=== PATIENT | female | born 2000 | race Two or more races ===

== ENCOUNTER 2024-12-24 15:56 | Emergency (ER) | payer OTHER ==
[~2024-12-24] VITALS: Ht 157.5 cm; Wt 45.4 kg
[2024-12-24 17:02] VITALS: BP 106/64; TEMP 98.1
[2024-12-24] MEDS ORDERED: IBUPROFEN 600 MG TABLET ONE (17:27)
[2024-12-24] MEDS ORDERED: ACETAMINOPHEN ES 500 MG TABLET ONE (17:27)
[2024-12-24] MEDS: IBUPROFEN 600 MG TABLET PO ONE (17:31)
[2024-12-24] MEDS: ACETAMINOPHEN ES 500 MG TABLET PO ONE (17:31)
[2024-12-24] MEDS ORDERED: IBUP-1490 PO (17:45)
[2024-12-24 18:06] VITALS: O2SAT 99
== END 2024-12-24 18:05 | disposition home or self-care (01) ==
LOC: ER 16:13
DX: M25.562 Pain in left knee (principal); X50.1XXA Overexertion from prolonged static or awkward postures, initial encounter; Y93.89 Activity, other specified; Y92.89 Other specified places as the place of occurrence of the external cause; Y99.9 Unspecified external cause status
CPT/HCPCS: 73564-TC